=== PATIENT | male | born 1985 | race Caucasian/White ===

== ENCOUNTER 2016-08-25 04:19 | Emergency (ER) | payer SELFPAY ==
[~2016-08-25] VITALS: Ht 193 cm; Wt 81.6 kg
== END 2016-08-25 06:00 | disposition short-term general hospital (02) ==
LOC: ER 04:19
DX: R56.9 Unspecified convulsions (principal); F17.210 Nicotine dependence, cigarettes, uncomplicated; Z98.890 Other specified postprocedural states